=== PATIENT | male | born 1965 | race Caucasian/White ===

== ENCOUNTER 2017-03-31 21:39 | Emergency (ER) | payer OTHER ==
--- NOTE | ~2017-03-31 | CR72 ---
[facility] A Service of [facility] RADIOLOGY TEXT RESULTS PATIENT: JAMIE SAAVEDRA LOCATION: [facility] : [birth year] UNIT #: [id number] AGE: [address]: rTaci Infante MD SEX: M ORDER DR: [id number] [facility] [address] [facility]. [place], [place] [address] [id number] E MR#: [id number] Acc #: [id number] NAME: JAMIE SAAVEDRA : 1965 SEX: M STUDY DATE/TIME: 03/31/2017 23:29 UNIT: [facility] ROOM: STUDY DESCRIPTION: CR Chest Single View Portable Attending Physician: Traci Infante M.D. Ordering Physician: Traci Infante M.D. Primary Care Physician: Primary Care Physician No MEDICAL IMAGING REPORT This report is preliminary unless electronic signature is present EXAM Chest x-ray, 03/31/17 HISTORY 51-year-old male in the ED complaining of acute mental status changes and weakness today. Ethanol intoxication is reported. TECHNIQUE AP portable chest x-ray. FINDINGS Heart size and pulmonary vascularity are normal. The lungs are expanded and clear. No visible pulmonary infiltrate or pleural effusion. IMPRESSION Negative chest. Dictated by... Jabier Ellis M.D. THIS IS AN ELECTRONICALLY VERIFIED REPORT Jabier Ellis M.D. at 04/01/2017 6:04 AM BINU/thu TD: 04/01/2017 00:17 JOB #: [id number] MEDICAL IMAGING REPORT Page 1 of 1 COPY
--- NOTE | ~2017-03-31 | CR142 ---
[facility] A Service of [facility] RADIOLOGY TEXT RESULTS PATIENT: JAMIE SAAVEDRA [id number] [birth year] UNIT #: [id number] AGE: [address]: Traci Infante MD SEX: M ORDER DR: [id number] [facility] [address] [facility]. [place], [place] [address] [id number] E MR#: [id number] Acc #: [id number] NAME: JAMIE SAAVEDRA : 1965 SEX: M STUDY DATE/TIME: 04/01/2017 4:28 UNIT: [facility] ROOM: STUDY DESCRIPTION: CR Hand Min 3 Views Rt Attending Physician: Traci Infante M.D. Ordering Physician: Traci Infante M.D. Primary Care Physician: Primary Care Physician No MEDICAL IMAGING REPORT This report is preliminary unless electronic signature is present EXAM Right hand series 04/01/2017 HISTORY 51-year-old male in the ED with right hand pain and swelling after injury. Punched a wall today prior to arrival. TECHNIQUE Three-view right hand series. FINDINGS No acute fracture or dislocation is demonstrated. Old healed fracture deformities of the fourth and fifth mid metacarpal shafts are noted. Dorsal soft tissue swelling. IMPRESSION 1. No acute osseous abnormality. 2. Dorsal soft tissue swelling. 3. Old healed fourth and fifth metacarpal fractures. Dictated by... Jabier Ellis M.D. THIS IS AN ELECTRONICALLY VERIFIED REPORT Jabier Ellis M.D. at 04/08/2017 1:57 PM BINU/zhou TD: 04/01/2017 06:13 JOB #: [id number] MEDICAL IMAGING REPORT Page 1 of 1 COPY
--- NOTE | ~2017-03-31 | EKG ---
PATIENT: JAMIE SAAVEDRA UNIT #: [id number] Ventricular Rate: 65 BPM Atrial Rate: 65 BPM P-R Interval: 208 ms QRS Duration: 76 ms Q-T Interval: 410 ms QTC Calculation(Bezet): 426 ms P [place]: 66 degrees Calculated R [place]: 2 degrees Calculated T [place]: 27 degrees Diagnosis Line: Normal sinus rhythm with sinus arrhythmia Diagnosis Line: Normal ECG Diagnosis Line: No previous ECGs available Diagnosis Line: Confirmed by MAHI SEGURA MD ([id number]) on 04/03/2017 Diagnosis Line: 4:16:43 PM INTERPRETING MD: IMELDA HUMPHREY
--- NOTE | ~2017-03-31 | CT71 ---
[facility] A Service of [facility] RADIOLOGY TEXT RESULTS PATIENT: JAMIE SAAVEDRA LOCATION: [facility] : [birth year] UNIT #: [id number] AGE: [address]: Traci Infante MD SEX: M ORDER DR: [id number] [place] [id number] [facility]. [place], [place] [address] [id number] E MR#: [id number] Acc #: [id number] NAME: JAMIE SAAVEDRA. : 1965 SEX: M STUDY DATE/TIME: 04/01/2017 0:02 UNIT: [facility] ROOM: STUDY DESCRIPTION: CT Head Wo Contrast Attending Physician: Traci Infante M.D. Ordering Physician: Traci Infante M.D. Primary Care Physician: Primary Care Physician No MEDICAL IMAGING REPORT This report is preliminary unless electronic signature is present EXAM CT head, noncontrast, 04/01/17 HISTORY 51-year-old male in the ED with lethargy, decreased level of responsiveness. Ethanol intoxication is reported. Unknown status regarding head injury. TECHNIQUE CT examination of the head without IV contrast. This CT exam was performed with one or more of the following radiation dose reduction techniques: Automatic exposure control, adjustment of mA and/or kV according to patient size, and iterative reconstruction. FINDINGS The examination is negative. No evidence of intracranial hemorrhage, mass, mass effect, cerebral edema, hydrocephalus or additional abnormality. No visible skull fracture. Mucosal thickening throughout the visualized paranasal sinuses. IMPRESSION 1. Negative noncontrast head CT examination. 2. Mucosal thickening throughout the visualized paranasal sinuses. Dictated by... Jabier Ellis M.D. THIS IS AN ELECTRONICALLY VERIFIED REPORT Jabier Ellis M.D. at 04/08/2017 1:57 PM BINU/thu [facility] A Service of [facility] RADIOLOGY TEXT RESULTS PATIENT: JAMIE SAAVEDRA LOCATION: [facility] : [birth year] UNIT #: [id number] AGE: [address]: Traci Infante MD SEX: M ORDER DR: TD: 04/01/2017 00:49 JOB #: [id number] MEDICAL IMAGING REPORT Page 1 of 1 COPY
[2017-03-31 23:58] LABS: URINE SOURCE CLEAN CATCH
[2017-04-01 00:07] LABS: URINE APPEARANCE CLEAR; URINE BILIRUBIN NEG (NEG); URINE BLOOD 1+ (NEG); URINE COLOR YELLOW; URINE GLUCOSE NEG (NEG); URINE KETONE NEG (NEG); URINE LEUKOCYTE ESTERASE TRACE (NEG); URINE NITRATE NEG (NEG); URINE PH 5.5 (5-8); URINE PROTEIN NEG (NEG); URINE SPECIFIC GRAVITY 1.005 (1.003-1.035); URINE UROBILINOGEN 0.2 MG/DL (NEG)
[2017-04-01 00:08] LABS: BASOPHIL# 0.1 X10e3 (0-0.3); BASOPHIL% 0.6 % (0-2.5); EOSINOPHIL# 0.1 X10e3 (0-0.7); EOSINOPHIL% 1.1 % (0.0-7.0); HEMOGLOBIN 13.7 gm/dL (13.0-16.0); LYMPHOCYTE# 3.3 X10e3 (1.0-3.5); LYMPHOCYTE% 24.2 % (17.0-45.0); MEAN CELL VOLUME 90.4 FL (83-96); MEAN CORPUSCULAR HEMOGLOBIN 29.5 PG (28-34); MEAN CORPUSCULAR HGB CONC 32.7 g/dL (30-36); MEAN PLATELET VOLUME 8.2 FL (6.5-11.5); MONOCYTE% 6.9 % (3.0-12.0); NEUTROPHIL# 9.2 X10e3 (1.5-7.1); NEUTROPHIL% 67.2 % (40-75); PLATELET COUNT 243 X10e3 (140-420); RED BLOOD COUNT 4.65 X10e (3.90-5.60); RED CELL DISTRIBUTION WIDTH 12.6 % (11.0-15.5); WHITE BLOOD COUNT 13.7 X10e3 (4.0-10.5)
[2017-04-01 00:10] LABS: URBCS1 AUWI 0-2 /[HPF] (0-2); URINE BACTERIA AUWI NEG (NEGATIVE); URINE SQUAMOUS EPITHELIAL CELL OCC /[HPF]; UWBCS1 AUWI 0-2 (0-5)
[2017-04-01 00:12] LABS: DIFF IND NO
[2017-04-01 00:20] LABS: CULTURE INDICATED? NO
[2017-04-01 00:21] LABS: AMPHETAMINE NEG (NEG); BARBITURATES NEG (NEG); BENZODIAZEPINES NEG (NEG); COCAINE NEG (NEG); MARIJUANA NEG (NEG); OPIATES NEG (NEG); TRICYCLIC ANTIDEPRESSANTS NEG (NEG); U METHADONE NEG (NEG)
[2017-04-01 00:38] LABS: ALBUMIN SERUM 4.4 g/dL (3.5-5.0); ALKALINE PHOSPHATASE 77 U/L (32-92); ALT (SGPT) 15 U/L (10-40); AST (SGOT) 16 U/L (10-42); BILIRUBIN,TOTAL 0.7 mg/dL (0.2-2.0); BLOOD UREA NITROGEN 8 mg/dL (9-23); BUN/CREATININE RATIO 13.33; CALCIUM SERUM 8.8 mg/dL (8.4-10.2); CARBON DIOXIDE 24 mmol/L (22-31); CHLORIDE 99 mmol/L (100-111); CREATININE SERUM 0.6 mg/dL (0.6-1.4); GLOM FILT RATE Estimated 118.1 mL/min (>60); GLUCOSE FASTING 92 mg/dL (70-110); POTASSIUM 3.1 mmol/L (3.5-5.1); PROTEIN TOTAL SERUM 7.2 g/dL (6.0-8.3); SALICYLATE <4.0 mg/dL; SODIUM 134 mmol/L (135-145)
[2017-04-01 00:52] LABS: ACETAMINOPHEN <10 ug/mL; ALCOHOL BLOOD 157 mg/dL ([, 0]); BILIRUBIN, DIRECT <0.1 mg/dL (0.0-0.2); BILIRUBIN,INDIRECT 0.6 mg/dL (0.0-0.9)
== END 2017-04-01 09:15 ==
LOC: CED 21:39
PROVIDERS: Emergency Medicine
DX: T51.0X2A Toxic effect of ethanol, intentional self-harm, initial encounter (principal); F17.210 Nicotine dependence, cigarettes, uncomplicated; Y92.9 Unspecified place or not applicable
CPT/HCPCS: 36415; 51701; 70450; 71010; 73130; 80048; 80076; 80307; 81003; 82947; 85025; 93005; 96361; 96374; 99285; G0480

== ENCOUNTER 2017-04-01 02:00 | Inpatient (IN) | payer OTHER ==
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
--- NOTE | ~2017-04-01 | PN ---
Unit #: [id number] #: [id number] Patient: JAMIE SYKES [id number] [facility] [address] [place] [address] [id number] I MR#: [id number] NAME: JAMIE SYKES. ROOM: P132 Age: 51 Sex: M Admission Date: 04/01/2017 : 1965 Attending Physician: Jean Pierre King M.D. Admitting Physician: Jean Pierre King M.D. Primary Care Physician: Generic Doctor Not In System [facility] PROGRESS NOTES DATE OF SERVICE: 04/02/2017 SUBJECTIVE Mr. Sykes is a 51-year-old white male, who seen today and chart was reviewed, and case was discussed with the staff. He has been anxious, withdrawn, confused, and seclusive to himself. carry on any meaningful conversation. MENTAL STATUS EXAMINATION Middle-aged white male, who was casually dressed distress or discomfort. He was awake and alert with impaired attention and concentration. His mood was anxious with congruent affect. He denies any suicidal ideations. His insight and judgement remain significantly impaired. TREATMENT PLAN 1. We will continue him on his current medications and treatment protocol. We will monitor his response to medication and make further adjustments as needed. 2. We will continue to follow up. Dictated by... Jeremy Guzman/dee TD: 04/03/2017 16:15 JOB #: [id number] [facility] PROGRESS NOTES Page 1 of 1 X Jean Pierre King MD PROGRESS NOTE
--- NOTE | ~2017-04-01 | HP ---
Unit #: [id number] #: [id number] Patient: BILL SAAVEDRA [id number] [place] [address] [id number] I MR#: [id number] NAME: BILL SAAVEDRA. ROOM: P132 Age: 51 Sex: M Admission Date: 04/01/2017 : 1965 Attending Physician: Jean Pierre King M.D. Admitting Physician: Jean Pierre King M.D. Primary Care Physician: Generic Doctor Not In System HISTORY AND PHYSICAL HISTORY OF PRESENT ILLNESS Bill is a 51 year old admitted to [address] [place] [address] because of his abuse of alcohol. He is a poor historian, so his history is taken from his chart. PAST MEDICAL HISTORY 1. History of alcohol abuse. 2. History of withdrawal seizures. 3. Significant testosterone deficiency. PAST SURGICAL HISTORY Nothing reported. ALLERGIES No known drug allergies. SOCIAL HISTORY Smokes one pack per day. Drinks alcohol frequently. Admits to using marijuana on occasion. FAMILY HISTORY Medically noncontributory. REVIEW OF SYSTEMS He does not answer questions appropriately. There are no reports of nausea, vomiting, or diarrhea. He has had no cough or increased temperature. CURRENT MEDICATIONS 1. Milk of Magnesia p.r.n. 2. Maalox p.r.n. 3. Tylenol p.r.n. 4. Nicotine patch 14 mg q. day. 5. Testosterone injections q. month. PHYSICAL EXAMINATION GENERAL: Alert, effeminant man. No apparent distress. VITAL SIGNS: Blood pressure 110/70, heart rate 62, respirations 16, and temperature 98.6. WEIGHT: 133. HEIGHT: 5 feet 7 inches. SKIN: Warm and dry without rash or lesion. HEENT: Normocephalic. TMs not viewed. Oral and nasal passages clear. Conjunctivae clear. PERRLA. EOMs intact. Facial hair is very sparse. NECK: Supple without lymphadenopathy or thyromegaly. Unit #: [id number] #: [id number] Patient: BILL SAAVEDRA HEART: Regular rate and rhythm without murmur. LUNGS: Clear. ABDOMEN: Soft, nontender. : Not done. EXTREMITIES: No evidence of cyanosis, clubbing or edema. Moves all without focal deficit. NEUROLOGICAL: Unable to complete extended exam. He does move all extremities without focal deficit. Hand fleece tier is equal. Gait not observed. IMPRESSION Psychiatric admission. RECOMMENDATIONS PSYCHIATRIC: Per psychiatrist. MEDICAL: I see no contraindication to participate in this facility's activities. MEDICAL PROGNOSIS Good. MEDICAL CONDITION Stable. Dictated by... Rachel Murray P.A.-C. for Jeremy Garza/flavia TD: 04/02/2017 10:28 JOB #: [id number] HISTORY AND PHYSICAL Page 1 of 1 X Rachel Murray X HISTORY AND PHYSICAL
--- NOTE | ~2017-04-01 | PN ---
Unit #: [id number] #: [id number] Patient: JAMIE SYKES [id number] [facility] [address] [place] [address] [id number] I MR#: [id number] NAME: JAMIE SYKES. ROOM: P132 Age: 51 Sex: M Admission Date: 04/01/2017 : 1965 Attending Physician: Jean Pierre King M.D. Admitting Physician: Jean Pierre King M.D. Primary Care Physician: Generic Doctor Not In System [facility] PROGRESS NOTES DATE OF SERVICE: 04/04/2017 SUBJECTIVE Mr. Sykes is a 51-year-old white male who was seen today and chart was reviewed and case was discussed with the staff. He has been anxious, withdrawn, and rather seclusive to himself. Meanwhile, he has been cooperative with treatment recommendations and has been taking the medications and tolerating them fairly well with no reported side effects. MENTAL STATUS EXAMINATION Young white male who was casually dressed with fair personal hygiene, appears to be in no acute distress or discomfort. He was awake and alert on interaction with intact orientation. His mood was anxious with a congruent affect. He denies any suicidal or homicidal ideations. His insight and judgment remain slightly impaired. TREATMENT PLAN 1. We will continue him on his current treatment protocol. We will monitor his response and make further adjustments as needed. 2. We will continue to follow up. Dictated by... Jeremy Guzman/beryll TD: 04/06/2017 01:18 JOB #: [id number] [facility] PROGRESS NOTES Page 1 of 1 X Jean Pierre King MD PROGRESS NOTE
--- NOTE | ~2017-04-01 | PN ---
Unit #: [id number] #: [id number] Patient: JAMIE SYKES [id number] [facility] [address] [place] [address] [id number] I MR#: [id number] NAME: JAMIE SYKES. ROOM: P132 Age: 51 Sex: M Admission Date: 04/01/2017 : 1965 Attending Physician: Jean Pierre King M.D. Admitting Physician: Jean Pierre King M.D. Primary Care Physician: Generic Doctor Not In System [facility] PROGRESS NOTES DATE April 03, 2017 DISCUSSION Mr. Sykes is a 51-year-old white male, who was seen today and chart was reviewed and the case was discussed with the staff. He has been anxious, withdrawn, but has not shown any agitation, irritability, and has been seclusive to himself, and has not been interacting, socializing, taking care of his personal hygiene, and has significant depressive symptoms. MENTAL STATUS EXAMINATION Middle-aged white male, who was casually dressed with fair personal hygiene and appears to be in no acute distress or discomfort. He was awake and alert on interaction with intact orientation. His mood is anxious with a congruent affect. He denies any suicidal or homicidal ideations. His insight and judgment remain slightly impaired. TREATMENT PLAN 1. We will continue him on his current treatment protocol, and will monitor his response to the medications, and make further adjustments as needed. 2. We will continue to followup. Dictated by... Jeremy Guzman/patti TD: 04/04/2017 09:15 JOB #: [id number] Unit #: [id number] #: [id number] Patient: JAMIE SYKES [facility] PROGRESS NOTES Page 1 of 1 X Jean Pierre King MD PROGRESS NOTE
--- NOTE | ~2017-04-01 | DS ---
Unit #: [id number] #: [id number] Patient: JAMIE SYKES [id number] [facility] [address] [place] [address] [id number] I MR#: [id number] NAME: JAMIE SYKES. ROOM: P132 Age: 51 Sex: M Admission Date: 04/01/2017 : 1965 Discharge Date: Attending Physician: Jean Pierre King M.D. Primary Care Physician: Generic Doctor Not In System DISCHARGE SUMMARY IDENTIFYING DATA Mr. Sykes is a 51-year-old white male, who is a resident of [place], [place], and was transferred to us on a 72 hours hold from [facility]. DISCHARGE DIAGNOSES Psychiatric: Major depressive disorder, recurrent, moderate, without psychotic features; alcohol abuse, moderate. Medical: History of withdrawal seizures. Stressors: Moderate psychosocial stressors. HISTORY OF PRESENT ILLNESS Please see initial psychiatric evaluation for details. PAST PSYCHIATRIC HISTORY Please see initial psychiatric evaluation for details. PAST MEDICAL HISTORY Please see initial psychiatric evaluation for details. HOSPITAL COURSE The [facility] and was oriented to the hospital environment. Routine p.r.n. medications were initiated, and he was started back on his home medications and Remeron 15 mg as an antidepressant was initiated and he was closely monitored. He was taking medications regularly and was tolerating them fairly well and was able to show a decent therapeutic response and was able to come out of the detox without any complications and was willing to continue treatment on an outpatient basis. DISCHARGE MEDICATIONS Remeron 15 mg at bedtime for depression. DISCHARGE CONDITION Stable. PROGNOSIS Fair. Dictated by... Jean Pierre King M.D. IAA/modl Unit #: [id number] #: [id number] Patient: JAMIE SYKES TD: 04/05/2017 07:51 JOB #: [id number] DISCHARGE SUMMARY Page 1 of 1 X Jean Pierre King MD X DISCHARGE SUMMARY
[2017-04-02 12:21] LABS: BASOPHIL# 0.1 X10e3 (0-0.3); BASOPHIL% 0.6 % (0-2.5); EOSINOPHIL# 0.5 X10e3 (0-0.7); EOSINOPHIL% 5.5 % (0.0-7.0); HEMATOCRIT 44.4 % (38.0-50.0); HEMOGLOBIN 15.1 gm/dL (13.0-16.0); LYMPHOCYTE# 4.3 X10e3 (1.0-3.5); LYMPHOCYTE% 45.1 % (17.0-45.0); MEAN CELL VOLUME 89.6 FL (83-96); MEAN CORPUSCULAR HEMOGLOBIN 30.4 PG (28-34); MEAN CORPUSCULAR HGB CONC 33.9 g/dL (30-36); MEAN PLATELET VOLUME 8.7 FL (6.5-11.5); MONOCYTE# 0.8 X10e3 (0-1.0); MONOCYTE% 8.2 % (3.0-12.0); NEUTROPHIL# 3.9 X10e3 (1.5-7.1); NEUTROPHIL% 40.6 % (40-75); PLATELET COUNT 253 X10e3 (140-420); RED BLOOD COUNT 4.95 X10e (3.90-5.60); WHITE BLOOD COUNT 9.5 X10e3 (4.0-10.5)
[2017-04-02 12:31] LABS: DIFF IND NO
[2017-04-02 12:37] LABS: ALBUMIN SERUM 4.1 g/dL (3.5-5.0); BILIRUBIN,TOTAL 0.5 mg/dL (0.2-2.0); BUN/CREATININE RATIO 16.25; CALCIUM SERUM 9.4 mg/dL (8.4-10.2); CREATININE SERUM 0.8 mg/dL (0.6-1.4); GLOM FILT RATE Estimated 104.9 mL/min (>60); POTASSIUM 4.4 mmol/L (3.5-5.1); PROTEIN TOTAL SERUM 6.8 g/dL (6.0-8.3)
== END 2017-04-05 10:30 | disposition home or self-care (01) | DRG 885 ==
LOC: P1S 02:00
PROVIDERS: Psychiatry & Neurology Psychiatry
DX: F33.1 Major depressive disorder, recurrent, moderate (principal); G40.509 Epileptic seizures related to external causes, not intractable, without status epilepticus; F10.10 Alcohol abuse, uncomplicated; F17.210 Nicotine dependence, cigarettes, uncomplicated; Y90.6 Blood alcohol level of 120-199 mg/100 ml
CPT/HCPCS: 80053; 85025